=== PATIENT | female | born 1990 | race African-American/Black ===

== ENCOUNTER 2018-04-18 19:24 | Emergency (ER) | payer SELFPAY ==
[~2018-04-18] VITALS: Ht 162.6 cm; Wt 61.2 kg
[~2018-04-18 19:24] MED LIST: ALBUTEROL
[2018-04-18] MEDS ORDERED: ONDANSETRON HCL 4MG/2ML INJ IV STA (19:49)
[2018-04-18] MEDS ORDERED: SODIUM CHLORIDE 0.9% 1,000 ML IV ONE (19:49)
[2018-04-18 20:51] LABS: CLARITY URINE CLOUDY (CLEAR); COLOR URINE YELLOW (YELLOW); KETONES URINE TRACE (NEGATIVE); LEUKOCYTE ESTERASE URINE 1+ (NEGATIVE); NITRITE URINE NEGATIVE (NEGATIVE); OCCULT BLOOD URINE TRACE (NEGATIVE); PROTEIN URINE NEGATIVE (NEGATIVE); SPECIFIC GRAVITY URINE 1.023 (1.005-1.030)
[2018-04-18] MEDS ORDERED: KETOROLAC 15MG/ML VIAL IV ONE (21:30)
[2018-04-18 22:24] VITALS: BP 106/73
== END 2018-04-18 22:58 | disposition home or self-care (01) ==
LOC: ER 19:24
DX: N30.90 Cystitis, unspecified without hematuria (principal); J45.909 Unspecified asthma, uncomplicated; Z79.899 Other long term (current) drug therapy
CPT/HCPCS: 81003; 81025; 96374; 96375; 99284; J1885; J2405; J7030; J7040; Z7610

== ENCOUNTER 2018-10-28 05:05 | Emergency (ER) | payer SELFPAY ==
[~2018-10-28] VITALS: Ht 170.2 cm; Wt 66.0 kg
[2018-10-28 05:20] VITALS: BP 110/71
== END 2018-10-28 06:36 | disposition left against medical advice (07) ==
LOC: ER 05:05
DX: F41.9 Anxiety disorder, unspecified (principal); Z53.21 Procedure and treatment not carried out due to patient leaving prior to being seen by health care provider

== ENCOUNTER 2019-09-04 02:12 | Emergency (ER) | payer SELFPAY ==
[~2019-09-04] VITALS: Ht 167.6 cm; Wt 71.0 kg
[2019-09-04] MEDS ORDERED: SODIUM CHLORIDE 0.9% 1,000 ML IV ONE (02:55)
[2019-09-04] MEDS ORDERED: ONDANSETRON HCL 4MG/2ML INJ IV ONE (03:00)
[2019-09-04 03:07] LABS: CLARITY URINE CLOUDY (CLEAR); COLOR URINE YELLOW (YELLOW); KETONES URINE NEGATIVE (NEGATIVE); LEUKOCYTE ESTERASE URINE NEGATIVE (NEGATIVE); NITRITE URINE POSITIVE (NEGATIVE); OCCULT BLOOD URINE 1+ (NEGATIVE); PROTEIN URINE NEGATIVE (NEGATIVE); SPECIFIC GRAVITY URINE 1.024 (1.005-1.030); UROBILINOGEN URINE 0.2 E.U./dL (0.2-1.0)
[2019-09-04 03:16] LABS: BASOPHILS % 1.4 % (0.0-2.0); EOSINOPHILS % 1.6 % (0.0-5.0); HEMATOCRIT. 38.2 % (36.0-48.0); LYMPHOCYTES % 33.2 % (20.0-50.0); MEAN CORPUSCULAR HEMOGLOBIN 31.4 pg (28.0-32.0); MEAN CORPUSCULAR VOLUME 92.4 fL (81.0-99.0); MEAN PLATELET VOLUME 7.1 fl (7.4-10.4); MONOCYTES % 7.9 % (2.0-8.0); NEUTROPHILS % 55.9 % (40.0-76.0); PLATELET 378 x1000/uL (130-400); RED BLOOD CELL COUNT 4.13 mill/uL (4.2-5.4); RED CELL DISTRIBUTION WIDTH 14.6 % (11.6-14.6)
[2019-09-04 03:19] LABS: CHLORIDE 110 mEq/L (98-107)
[2019-09-04 03:30] LABS: B-HCG QUANTITATIVE < 1 mIU/mL (<3)
[2019-09-04] MEDS ORDERED: KETOROLAC 15MG/ML VIAL IV SCH (04:00)
[2019-09-04] MEDS ORDERED: CEFTRIAXONE 1 G PREMIX 50 ML IV ONE (06:15)
[2019-09-04] MEDS ORDERED: AZITHROMYCIN 500 MG TABLET PO ONE (07:00)
[2019-09-04 07:39] VITALS: BP 100/72
== END 2019-09-04 07:40 | disposition home or self-care (01) ==
LOC: ER 02:12
DX: N39.0 Urinary tract infection, site not specified (principal); N73.9 Female pelvic inflammatory disease, unspecified; A64 Unspecified sexually transmitted disease; F17.290 Nicotine dependence, other tobacco product, uncomplicated
CPT/HCPCS: 36415; 74176; 80053; 81003; 81025; 84702; 85025; 87210; 87491; 87591; 96361; 96365; 96375; 99284; J0696; J1885; J2405; J7030